=== PATIENT | male | born 1990 | race American Indian/Alaskan Native ===

== ENCOUNTER 2017-01-11 10:30 | Outpatient (CLI) | payer OTHER ==
--- NOTE | 2017-01-11 11:24 | XRay Report ---
LEFT HUMERUS RADIOGRAPHS INDICATION: Left humerus pain. COMPARISON: None similar. FINDINGS: AP and lateral left humerus radiographs demonstrate intact bones and joints. Subtle soft tissue swelling at the elbow posteriorly not entirely excluded versus related to patient's body habitus. CONCLUSION: No acute left humerus radiographic abnormality with questionable soft tissue swelling at the left elbow posteriorly. Please correlate. Thank you for the opportunity to participate in this patient's care.
--- NOTE | 2017-01-11 11:25 | XRay Report ---
LUMBAR SPINE RADIOGRAPHS: INDICATION: Low back pain. COMPARISON: None similar at this institution. FINDINGS: AP and lateral lumbar spine radiographs demonstrate preserved vertebral body stature, alignment and disc heights. Nonobstructive bowel gas pattern. Normal bilateral SI joints. CONCLUSION: No acute lumbar radiographic abnormality. Thank you for the opportunity to participate in this patient's care.
== END 2017-01-11 10:31 | disposition home or self-care (01) ==
LOC: XRAY 10:30
PROVIDERS: ATTEND Internal Medicine
DX: M54.5 Low back pain (principal); M79.642 Pain in left hand; F41.9 Anxiety disorder, unspecified
CPT/HCPCS: 72100

== ENCOUNTER 2018-10-05 00:33 | Emergency (ER) | payer SELFPAY ==
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
[2018-10-05] MEDS ORDERED: IBUPROFEN PO ONE (07:50)
[2018-10-05 08:07] VITALS: BP 109/50
== END 2018-10-05 08:42 | disposition home or self-care (01) ==
LOC: ED 00:33
DX: S89.92XA Unspecified injury of left lower leg, initial encounter (principal); F17.200 Nicotine dependence, unspecified, uncomplicated; V49.49XA Driver injured in collision with other motor vehicles in traffic accident, initial encounter; Y93.89 Activity, other specified; Y92.488 Other paved roadways as the place of occurrence of the external cause; Y99.8 Other external cause status